=== PATIENT | male | born 1960 | race Caucasian/White ===

== ENCOUNTER → 2023-11-15 09:56 | Outpatient (REF) | payer OTHER, SELFPAY | LOC: RAD 09:56 | PROVIDERS: ATTENDING PHYSICIAN Neurological Surgery; FAMILY PHYSICIAN Family Medicine; REFERRING PHYSICIAN Neurological Surgery | DX: D49.7 Neoplasm of unspecified behavior of endocrine glands and other parts of nervous system (principal) | CPT/HCPCS: 72114; 72131 ==

== ENCOUNTER → 2023-12-08 10:32 | Outpatient (REF) | payer OTHER, SELFPAY | LOC: PAVMRI 10:32 | PROVIDERS: ATTENDING PHYSICIAN Neurological Surgery; FAMILY PHYSICIAN Family Medicine; OTHER PHYSICIAN Neurological Surgery; REFERRING PHYSICIAN Physician Assistant Medical | DX: D49.7 Neoplasm of unspecified behavior of endocrine glands and other parts of nervous system (principal) | CPT/HCPCS: 70553; 72156; 72157; A9585 ==

== ENCOUNTER → 2023-12-12 10:01 | Outpatient (REF) | payer OTHER, SELFPAY | LOC: MRI 10:01 | PROVIDERS: ATTENDING PHYSICIAN Physician Assistant Medical; FAMILY PHYSICIAN Family Medicine; OTHER PHYSICIAN Neurological Surgery; REFERRING PHYSICIAN Neurological Surgery | DX: D49.7 Neoplasm of unspecified behavior of endocrine glands and other parts of nervous system (principal) | CPT/HCPCS: 72158; A9575 ==

== ENCOUNTER → 2023-12-18 12:05 | Outpatient (REF) | payer OTHER, SELFPAY | LOC: RCS 12:05 | PROVIDERS: ATTENDING PHYSICIAN Internal Medicine; FAMILY PHYSICIAN Family Medicine | DX: Z01.818 Encounter for other preprocedural examination (principal) | CPT/HCPCS: 93005 ==

== ENCOUNTER → 2024-06-23 06:29 | Day surgery (SDC) | payer OTHER, SELFPAY | LOC: GI 06:29 | PROVIDERS: ATTENDING PHYSICIAN Surgery | DX: Z12.11 Encounter for screening for malignant neoplasm of colon (principal); D12.0 Benign neoplasm of cecum; D12.2 Benign neoplasm of ascending colon; K62.1 Rectal polyp; Z86.010 Personal history of colon polyps | CPT/HCPCS: 45380; 88305 ==

== ENCOUNTER → 2024-07-06 17:22 | Outpatient (REF) | payer OTHER, SELFPAY | LOC: MRI 17:22 | PROVIDERS: ATTENDING PHYSICIAN Neurological Surgery; FAMILY PHYSICIAN Family Medicine | DX: D49.7 Neoplasm of unspecified behavior of endocrine glands and other parts of nervous system (principal) | CPT/HCPCS: 72158; A9575 ==

== ENCOUNTER → 2025-02-07 11:56 | Outpatient (REF) | payer OTHER, SELFPAY | LOC: PAVMRI 11:56 | PROVIDERS: ATTENDING PHYSICIAN Neurological Surgery; FAMILY PHYSICIAN Family Medicine | DX: D49.7 Neoplasm of unspecified behavior of endocrine glands and other parts of nervous system (principal) | CPT/HCPCS: 72158; A9575 ==

== ENCOUNTER → 2025-09-12 17:15 | Outpatient (REF) | payer OTHER, SELFPAY | LOC: PAVMRI 17:15 | PROVIDERS: ATTENDING PHYSICIAN Nurse Practitioner Adult Health; PRIMARYCARE PHYSICIAN Family Medicine | DX: M21.372 Foot drop, left foot (principal); R29.898 Other symptoms and signs involving the musculoskeletal system | CPT/HCPCS: 73721 ==